=== PATIENT | male | born 1955 | race Caucasian/White ===

== ENCOUNTER 2018-02-08 12:04 | Emergency (ER) | payer MEDICARE, OTHER ==
[~2018-02-08] VITALS: Ht 190.5 cm; Wt 90.7 kg
[2018-02-08] MEDS ORDERED: PERCOCET 10-321 EACH PO (12:21)
[2018-02-08] MEDS ORDERED: OXYCONTIN20 MG PO (12:21)
[2018-02-08] MEDS ORDERED: LYRICA100 MG (12:22)
[2018-02-08] MEDS ORDERED: VALIUM5 MG PO (12:23)
[2018-02-08] MEDS ORDERED: CYMBALTA30 MG PO (12:23)
[2018-02-08] MEDS ORDERED: ZOFRAN ODT4 MG PO (15:20)
[2018-02-08] MEDS ORDERED: MECLIZINE HCL25 MG PO (15:20)
--- NOTE | 2018-02-08 15:28 | EKG ---
[facility] [address] [place], [place] [address] Signed Sinus bradycardia Otherwise normal ECG No previous ECGs available Confirmed by ELA SHI MD ([id number] on 02/08/2018 3:28:28 PM Electronically Signed By: ELA SHI MD 02/08/18 1528 PATIENT NAME: MICHELE ROQUE Electrocardiogram DATE OF : 53 PHYSICIAN: ELA SHI MD REPORT #: [id number] REPORT IS CONFIDENTIAL AND NOT TO BE RELEASED WITHOUT AUTHORIZATION
== END 2018-02-08 15:26 | disposition home or self-care (01) ==
LOC: ED 12:04
DX: H83.09 Labyrinthitis, unspecified ear (principal); Z87.891 Personal history of nicotine dependence; Z79.891 Long term (current) use of opiate analgesic; Z79.899 Other long term (current) drug therapy
CPT/HCPCS: 70450; 70551; 80053; 84484; 85025; 93005; 93010; 96361; 96374; 96375; 99285; J1200; J2405; J7030